=== PATIENT | male | born 1935 | race Caucasian/White ===

== ENCOUNTER 2018-06-05 13:38 | Inpatient (IN) | payer MEDICARE, OTHER ==
[~2018-06-05] VITALS: Ht 188 cm; Wt 76.4 kg
[2018-06-05] MEDS ORDERED: SODIUM CHLORIDE FLUSH 10ML SYR IVF ONE (14:00)
[2018-06-05 14:09] LABS: BASOPHILS # (AUTO) 0.01 x10^3/uL (0-0.1); BASOPHILS % (AUTO) 0 % (0-1); EOSINOPHILS # (AUTO) 0.02 x10^3/uL (0-0.4); EOSINOPHILS % (AUTO) 0 % (1-7); LYMPHOCYTES # (AUTO) 1.71 x10^3/uL (1-3.4); LYMPHOCYTES % (AUTO) 20 % (22-44); MD NO; MEAN CORPUSCULAR HEMOGLOBIN 32.8 pg (27.5-34.5); MEAN CORPUSCULAR VOLUME 99.3 fL (81-97); MEAN PLATELET VOLUME 9.8 fL (7.4-10.4); MONOCYTES # (AUTO) 0.75 x10^3/uL (0.2-0.8); MONOCYTES % (AUTO) 9 % (2-9); NEUTROPHILS # (AUTO) 6.26 x10^3/uL (1.8-6.8); NEUTROPHILS % (AUTO) 72 % (42-75); PLATELET COUNT 186 x10^3/uL (130-400); RED BLOOD COUNT 4.28 x10^6/uL (4.38-5.82); RED CELL DISTRIBUTION WIDTH 15.4 % (9.4-14.8)
[2018-06-05 14:19] LABS: ALANINE AMINOTRANSFERASE 27 U/L (12-78); ALBUMIN 3.2 g/dL (3.4-5.0); ANION GAP 9 mmol/L (5-15); CALCIUM 9.4 mg/dL (8.5-10.1); CHLORIDE 104 mmol/L (98-107); CREATININE 1.41 mg/dL (0.7-1.3)
[2018-06-05 14:22] LABS: INTERNATIONAL NORMALIZED RATIO 1.03 (0.93-1.1); PROTHROMBIN TIME 10.7 Seconds (9.6-11.5)
[2018-06-05 14:23] LABS: ALKALINE PHOSPHATASE 125 U/L (45-117); BILIRUBIN,TOTAL 1.1 mg/dL (0.2-1.0); TOTAL PROTEIN 7.5 g/dL (6.4-8.2); TROPONIN I 0.028 ng/mL (0.000-0.045)
[2018-06-05] MEDS ORDERED: TAMS-11 PO (14:34)
[2018-06-05] MEDS ORDERED: ASPI-496 PO (14:34)
[2018-06-05] MEDS ORDERED: APIX2.5T PO (14:34)
[2018-06-05] MEDS ORDERED: SIMV5TAB5 PO (14:34)
[2018-06-05] MEDS ORDERED: VERA120C2 PO (14:34)
[2018-06-05] MEDS ORDERED: FUROSEMIDE 20 MG/2 ML ONE (14:47)
[2018-06-05] MEDS ORDERED: FUROSEMIDE 40 MG/4 ML IV ONE ×2 (15:00→21:00)
[2018-06-05] MEDS ORDERED: METO50TA6 PO (15:06)
[2018-06-05] MEDS ORDERED: METOPROLOL 1 MG/ML, 5ML IVPush STA (16:04)
[2018-06-05] MEDS ORDERED: METOPROLOL 1 MG/ML, 5ML ONE ×3 (16:06→16:53)
[2018-06-05] MEDS ORDERED: BISACODYL 10 MG SUPP PR PRN (16:30)
[2018-06-05] MEDS ORDERED: METOPROLOL 1 MG/ML, 5ML IVPush ONE (16:30)
[2018-06-05] MEDS ORDERED: ONDANSETRON ODT 4 MG PO PRN (16:30)
[2018-06-05] MEDS ORDERED: DIGOXIN 0.25 MG/ML, 2ML IVPush ONE ×2 (16:30→17:00)
[2018-06-05] MEDS ORDERED: LABETALOL 5MG/ML, 20ML IVPush PRN (16:30)
[2018-06-05] MEDS ORDERED: NITROGLYCERIN 0.4 MG/SPRAY SL PRN (16:30)
[2018-06-05 16:40] LABS: FREE T4 (FREE THYROXINE) 1.3 ng/dL (0.76-1.46); THYROID STIMULATING HORMONE 2.81 mIU/L (0.358-3.740)
[2018-06-05 16:56] LABS: HEMOGLOBIN A1C 5.8 % (4.2-6.3)
[2018-06-05] MEDS ORDERED: DIGOXIN 0.25 MG/ML, 2ML ONE (16:57)
[2018-06-05] MEDS ORDERED: FUROSEMIDE 40 MG/4 ML IV SCH (17:00)
[2018-06-05 17:42] LABS: FOLATE LEVEL > 20.0 ng/mL (3.1-17.5)
[2018-06-05 19:24] VITALS: BP_SYST 119; BP_SYST 121; BP_SYST 133; BP_DIAS 73; BP_DIAS 78; BP_DIAS 83
[2018-06-05] MEDS: SIMVASTATIN 5 MG TABLET PO SCH (19:59)
[2018-06-05] MEDS: APIXABAN 2.5 MG TABLET PO SCH (19:59)
[2018-06-05 20:49] LABS: MICROSCOPIC AUTO
[2018-06-05 20:52] LABS: CULTURE INDICATED? NO
[2018-06-05] MEDS ORDERED: PNEUMOCOCCAL 23 VACCINE IM-VACC ONE (22:30)
[2018-06-05] MEDS: DIGOXIN 0.25 MG/ML, 2ML IVPush SCH (22:48)
[2018-06-06] VITALS (7 sets, daily range): BP systolic 83–132; BP diastolic 53–78
[2018-06-06 05:01] LABS: ANION GAP 6 mmol/L (5-15); CALCIUM 9.1 mg/dL (8.5-10.1); CHLORIDE 100 mmol/L (98-107); CHOLESTEROL, TOTAL 135 mg/dL (140-239); TRIGLYCERIDES 63 mg/dL (50-200); VLDL CHOLESTEROL 13 mg/dL (0-25)
[2018-06-06 05:02] LABS: BASOPHILS # (AUTO) 0.03 x10^3/uL (0-0.1); BASOPHILS % (AUTO) 0 % (0-1); EOSINOPHILS # (AUTO) 0.14 x10^3/uL (0-0.4); EOSINOPHILS % (AUTO) 2 % (1-7); LYMPHOCYTES # (AUTO) 2.11 x10^3/uL (1-3.4); LYMPHOCYTES % (AUTO) 27 % (22-44); MD NO; MEAN CORPUSCULAR HEMOGLOBIN 33.5 pg (27.5-34.5); MEAN CORPUSCULAR HGB CONC 33.7 g/dL (33.2-36.2); MEAN CORPUSCULAR VOLUME 99.7 fL (81-97); MEAN PLATELET VOLUME 10.5 fL (7.4-10.4); MONOCYTES # (AUTO) 0.72 x10^3/uL (0.2-0.8); MONOCYTES % (AUTO) 9 % (2-9); NEUTROPHILS # (AUTO) 4.68 x10^3/uL (1.8-6.8); NEUTROPHILS % (AUTO) 61 % (42-75); PLATELET COUNT 171 x10^3/uL (130-400); RED BLOOD COUNT 3.47 x10^6/uL (4.38-5.82); RED CELL DISTRIBUTION WIDTH 15.6 % (9.4-14.8)
[2018-06-06 05:15] LABS: CHOL/HDL RATIO 2.6; HDL CHOL % 38 % (26-37); HDL CHOLESTEROL (DIRECT) 51 mg/dL (40-60); LDL CHOLESTEROL,CALCULATED 71 mg/dL (54-169); LDL/HDL RATIO 1.4 (0.5-3.0)
[2018-06-06] MEDS: DIGOXIN 0.25 MG/ML, 2ML IVPush SCH (05:30)
[2018-06-06 08:12] LABS: TROPONIN I 0.027 ng/mL (0.000-0.045)
[2018-06-06] MEDS ORDERED: VERAPAMIL HCL 120 MG PO SCH (09:00)
[2018-06-06] MEDS ORDERED: METOPROLOL TARTRATE 50 MG TABLET PO SCH (09:00)
[2018-06-06] MEDS: APIXABAN 2.5 MG TABLET PO SCH ×2 (09:36→20:03)
[2018-06-06] MEDS: ASPIRIN 81 MG TABLET EC PO SCH (09:36)
[2018-06-06] MEDS: TAMSULOSIN 0.4 MG CAP.ER.24H PO SCH (09:36)
[2018-06-06] MEDS: FUROSEMIDE 40 MG/4 ML IV SCH ×2 (09:36→16:42)
[2018-06-06] MEDS ORDERED: METOPROLOL TARTRATE 50 MG TABLET ONE (12:58)
[2018-06-06] MEDS: METOPROLOL TARTRATE 50 MG TABLET PO SCH ×2 (13:00→20:03)
[2018-06-06] MEDS: SIMVASTATIN 5 MG TABLET PO SCH (20:03)
[2018-06-06] MEDS ORDERED: METOPROLOL 1 MG/ML, 5ML IVPush ONE (22:00)
[2018-06-07 00:56] VITALS: BP 118/75
[2018-06-07 04:31] LABS: MEAN CORPUSCULAR HEMOGLOBIN 32.7 pg (27.5-34.5); MEAN CORPUSCULAR HGB CONC 32.8 g/dL (33.2-36.2); MEAN CORPUSCULAR VOLUME 99.8 fL (81-97); RED BLOOD COUNT 4.27 x10^6/uL (4.38-5.82); RED CELL DISTRIBUTION WIDTH 15.5 % (9.4-14.8)
[2018-06-07 04:46] LABS: ALBUMIN 2.9 g/dL (3.4-5.0); CHLORIDE 99 mmol/L (98-107)
[2018-06-07 04:47] LABS: ANION GAP 5 mmol/L (5-15); CREATININE 1.38 mg/dL (0.7-1.3)
[2018-06-07 05:55] LABS: BASOPHILS # (AUTO) 0.03 x10^3/uL (0-0.1); BASOPHILS % (AUTO) 0 % (0-1); EOSINOPHILS # (AUTO) 0.12 x10^3/uL (0-0.4); EOSINOPHILS % (AUTO) 1 % (1-7); LYMPHOCYTES # (AUTO) 1.89 x10^3/uL (1-3.4); LYMPHOCYTES % (AUTO) 23 % (22-44); MD SCAN; MEAN PLATELET VOLUME 9.9 fL (7.4-10.4); MONOCYTES % (AUTO) 9 % (2-9); NEUTROPHILS # (AUTO) 5.48 x10^3/uL (1.8-6.8); NEUTROPHILS % (AUTO) 67 % (42-75); PLATELET COUNT 146 x10^3/uL (130-400)
[2018-06-07 06:52] VITALS: BP 138/62
[2018-06-07] MEDS: METOPROLOL TARTRATE 50 MG TABLET PO SCH (06:54)
[2018-06-07] MEDS: TAMSULOSIN 0.4 MG CAP.ER.24H PO SCH (08:50)
[2018-06-07] MEDS: APIXABAN 2.5 MG TABLET PO SCH ×2 (08:50→20:08)
[2018-06-07] MEDS: ASPIRIN 81 MG TABLET EC PO SCH (08:50)
[2018-06-07] MEDS: DIGOXIN 0.125 MG TABLET PO SCH (08:51)
[2018-06-07] MEDS ORDERED: FUROSEMIDE 20 MG/2 ML IV SCH (09:00)
[2018-06-07] MEDS ORDERED: METOPROLOL TARTRATE 25 MG TABLET PO ONE (12:00)
[2018-06-07 12:29] VITALS: BP 116/74
[2018-06-07 16:18] VITALS: BP 120/83
[2018-06-07] MEDS ORDERED: METOPROLOL 1 MG/ML, 5ML IVPush ONE (17:00)
[2018-06-07 17:15] VITALS: BP 119/75
[2018-06-07 19:14] VITALS: BP 105/67
[2018-06-07] MEDS ORDERED: AMIODARONE 50 MG/ML, 3ML IVPush ONE (19:30)
[2018-06-07] MEDS: FUROSEMIDE 20 MG/2 ML IV SCH (20:07)
[2018-06-07] MEDS: SIMVASTATIN 5 MG TABLET PO SCH (20:08)
[2018-06-07] MEDS ORDERED: FILTER 0.22 MICRON FOR AMIODARONE IV PRN (20:30)
[2018-06-07] MEDS ORDERED: AMIODARONE 150 MG in DEXTROSE 5% 100 ML IV ONE (20:30)
[2018-06-07] MEDS ORDERED: METOPROLOL TARTRATE 25 MG TABLET PO SCH (21:00)
[2018-06-08] VITALS (7 sets, daily range): BP systolic 100–148; BP diastolic 56–74
[2018-06-08] MEDS ORDERED: METOPROLOL TARTRATE 25 MG TABLET ONE (00:21)
[2018-06-08] MEDS ORDERED: METOPROLOL TARTRATE 25 MG TABLET PO ONE (00:45)
[2018-06-08 05:09] LABS: ALBUMIN 2.8 g/dL (3.4-5.0); ANION GAP 9 mmol/L (5-15); CHLORIDE 97 mmol/L (98-107)
[2018-06-08 05:11] LABS: CREATININE 1.34 mg/dL (0.7-1.3)
[2018-06-08] MEDS: METOPROLOL TARTRATE 50 MG TABLET PO SCH ×2 (05:21→12:39)
[2018-06-08] MEDS: APIXABAN 2.5 MG TABLET PO SCH ×2 (08:39→20:22)
[2018-06-08] MEDS: FUROSEMIDE 20 MG/2 ML IV SCH ×2 (08:39→20:22)
[2018-06-08] MEDS: DIGOXIN 0.125 MG TABLET PO SCH (08:39)
[2018-06-08] MEDS: ASPIRIN 81 MG TABLET EC PO SCH (08:39)
[2018-06-08] MEDS ORDERED: MAGNESIUM SULFATE PMX 2GM/50ML 50 ML IV ONE (12:00)
[2018-06-08] MEDS: METOPROLOL TARTRATE 25 MG TABLET PO SCH (20:21)
[2018-06-08] MEDS: ACETAMINOPHEN 325 MG TABLET PO PRN (20:22)
[2018-06-08] MEDS: SIMVASTATIN 5 MG TABLET PO SCH (20:22)
[2018-06-09 01:55] VITALS: BP 94/58
[2018-06-09 05:19] LABS: CHLORIDE 95 mmol/L (98-107)
[2018-06-09 05:23] LABS: ALBUMIN 2.7 g/dL (3.4-5.0); ANION GAP 8 mmol/L (5-15); CALCIUM 9.4 mg/dL (8.5-10.1); CREATININE 1.31 mg/dL (0.7-1.3)
[2018-06-09] MEDS: ACETAMINOPHEN 325 MG TABLET PO PRN ×2 (05:33→13:57)
[2018-06-09] MEDS: METOPROLOL TARTRATE 25 MG TABLET PO SCH ×2 (05:34→18:23)
[2018-06-09 07:25] VITALS: BP 121/81
[2018-06-09] MEDS: APIXABAN 2.5 MG TABLET PO SCH ×2 (09:20→20:27)
[2018-06-09] MEDS: FUROSEMIDE 20 MG/2 ML IV SCH (09:21)
[2018-06-09] MEDS: ASPIRIN 81 MG TABLET EC PO SCH (09:21)
[2018-06-09] MEDS: DIGOXIN 0.125 MG TABLET PO SCH (09:21)
[2018-06-09 13:08] VITALS: BP 93/63
[2018-06-09] MEDS: POTASSIUM CHLORIDE 8 MEQ TABLET.ER PO SCH (18:23)
[2018-06-09 19:27] VITALS: BP 121/72
[2018-06-09] MEDS: SIMVASTATIN 5 MG TABLET PO SCH (20:27)
[2018-06-10 01:06] VITALS: BP 109/54
[2018-06-10] MEDS: METOPROLOL TARTRATE 25 MG TABLET PO SCH (05:48)
[2018-06-10 07:21] VITALS: BP 94/61
[2018-06-10] MEDS: FUROSEMIDE 40 MG TABLET PO SCH (08:35)
[2018-06-10] MEDS: APIXABAN 2.5 MG TABLET PO SCH ×2 (08:35→21:00)
[2018-06-10] MEDS: ASPIRIN 81 MG TABLET EC PO SCH (08:35)
[2018-06-10] MEDS: DIGOXIN 0.125 MG TABLET PO SCH (08:35)
[2018-06-10] MEDS ORDERED: FUROSEMIDE 10 MG/ML ORAL SOL PO SCH (09:00)
[2018-06-10] MEDS ORDERED: BISACODYL 10 MG SUPP PR PRN (10:00)
[2018-06-10] MEDS ORDERED: POLYETHYLENE GLYCOL 17 GM PACKET PO PRN (10:00)
[2018-06-10 13:30] VITALS: BP 94/54
[2018-06-10] MEDS: POTASSIUM CHLORIDE 8 MEQ TABLET.ER PO SCH ×2 (14:15→21:00)
[2018-06-10] MEDS: SENNA/DOCUSATE TABLET PO SCH (14:15)
[2018-06-10 14:17] VITALS: BP 109/78
[2018-06-10] MEDS: VERAPAMIL 40MG TABLET PO SCH ×3 (14:25→21:00)
[2018-06-10 18:00] VITALS: BP 89/60
[2018-06-10] MEDS: METOPROLOL TARTRATE 50 MG TABLET PO SCH (18:00)
[2018-06-10 18:47] VITALS: BP 110/58
[2018-06-10] MEDS: SIMVASTATIN 5 MG TABLET PO SCH (21:00)
[2018-06-11 00:13] VITALS: BP 94/53
[2018-06-11] MEDS: METOPROLOL TARTRATE 50 MG TABLET PO SCH ×4 (00:21→14:00)
[2018-06-11 05:10] LABS: ANION GAP 6 mmol/L (5-15); CALCIUM 9.3 mg/dL (8.5-10.1); CHLORIDE 97 mmol/L (98-107); CREATININE 1.27 mg/dL (0.7-1.3)
[2018-06-11 07:20] VITALS: BP 119/57
[2018-06-11] MEDS: POTASSIUM CHLORIDE 8 MEQ TABLET.ER PO SCH ×2 (08:00→17:19)
[2018-06-11] MEDS: SENNA/DOCUSATE TABLET PO SCH (09:00)
[2018-06-11] MEDS: FUROSEMIDE 40 MG TABLET PO SCH (09:52)
[2018-06-11] MEDS: APIXABAN 2.5 MG TABLET PO SCH ×2 (09:52→21:39)
[2018-06-11] MEDS: DIGOXIN 0.125 MG TABLET PO SCH (09:52)
[2018-06-11] MEDS: VERAPAMIL 40MG TABLET PO SCH ×3 (09:53→21:40)
[2018-06-11] MEDS ORDERED: METO50TA82 PO (12:16)
[2018-06-11] MEDS ORDERED: METO50TA6 PO (12:16)
[2018-06-11] MEDS ORDERED: VERA40TA PO (12:16)
[2018-06-11] MEDS ORDERED: FURO40TA6 PO (12:16)
[2018-06-11] MEDS ORDERED: POTA8TAB PO (12:16)
[2018-06-11] MEDS ORDERED: DIGO125T PO (12:16)
[2018-06-11 12:30] VITALS: BP 102/69
[2018-06-11 14:00] VITALS: BP 88/58
[2018-06-11 17:10] VITALS: BP 109/78
[2018-06-11 18:28] VITALS: BP 124/71
[2018-06-11] MEDS: SIMVASTATIN 5 MG TABLET PO SCH (21:40)
[2018-06-12 00:25] VITALS: BP 97/65
[2018-06-12] MEDS: METOPROLOL TARTRATE 50 MG TABLET PO SCH ×2 (06:50→15:16)
[2018-06-12 07:35] VITALS: BP 117/84
[2018-06-12 07:45] VITALS: BP 108/60
[2018-06-12] MEDS: DIGOXIN 0.125 MG TABLET PO SCH (07:58)
[2018-06-12] MEDS: FUROSEMIDE 40 MG TABLET PO SCH (07:58)
[2018-06-12] MEDS: VERAPAMIL 40MG TABLET PO SCH ×2 (07:58→16:00)
[2018-06-12] MEDS: SENNA/DOCUSATE TABLET PO SCH (07:58)
[2018-06-12] MEDS: APIXABAN 2.5 MG TABLET PO SCH (07:58)
[2018-06-12 14:05] VITALS: BP 100/68
[2018-06-12 15:14] VITALS: BP 107/70
[2018-06-12] MEDS: POTASSIUM CHLORIDE 8 MEQ TABLET.ER PO SCH ×2 (15:17→16:10)
[2018-06-12 16:24] VITALS: BP 94/67
== END 2018-06-12 18:47 | disposition home or self-care (01) | DRG 291 ==
LOC: ED 14:21 → EDIP 14:54 → 5SO 17:49
PROVIDERS: ADMIT Hospitalist; ATTEND Hospitalist
DX: I13.0 Hypertensive heart and chronic kidney disease with heart failure and stage 1 through stage 4 chronic kidney disease, or unspecified chronic kidney disease (principal); I50.43 Acute on chronic combined systolic (congestive) and diastolic (congestive) heart failure; J96.01 Acute respiratory failure with hypoxia; N17.0 Acute kidney failure with tubular necrosis; D68.59 Other primary thrombophilia; E44.0 Moderate protein-calorie malnutrition; I42.0 Dilated cardiomyopathy; I48.91 Unspecified atrial fibrillation; D75.89 Other specified diseases of blood and blood-forming organs; E78.5 Hyperlipidemia, unspecified; K59.00 Constipation, unspecified; N18.9 Chronic kidney disease, unspecified; N40.0 Benign prostatic hyperplasia without lower urinary tract symptoms; Z51.5 Encounter for palliative care; R00.0 Tachycardia, unspecified; I95.9 Hypotension, unspecified; Z87.891 Personal history of nicotine dependence; Z68.21 Body mass index [BMI] 21.0-21.9, adult
CPT/HCPCS: 36415; 36600; 71045; 71046; 80048; 80053; 80061; 80069; 80162; 81001; 82306; 82607; 82746; 82803; 83036; 83735; 83880; 84439; 84443; 84484; 85025; 85610; 85730; 90732; 93005; 93306; 96374; J1940; J0282; J1160; J3475